=== PATIENT | female | born 1990 | race Caucasian/White ===

== ENCOUNTER 2018-07-13 15:55 | Emergency (ER) | payer MEDICAID ==
--- NOTE | 2018-07-13 16:04 | EDM.PDOC ---
ED HPI GENERAL MEDICAL PROBLEM - General Chief Complaint: Neurological Problem Stated Complaint: UNRESPONSIVE Time Seen by Provider: 07/13/18 15:55 Source of Information: Reports: Family History Limitations: Reports: Altered Mental Status, Physical Impairment - History of Present Illness INITIAL COMMENTS - FREE TEXT/NARRATIVE: 28-year-old female with a long-standing history of seizures since she was a child after a reaction to an immunization according to her guardian, presents with her third seizure of the day. She's having prolonged postictal periods as well, so the guardian thought she should be checked. She is coming down with "a cold", but has not missed any medications. Her neurologist is in [place]. Her last neuroleptic blood levels were all upper level of therapeutic and no changes were done. No recent fevers, nausea or vomiting or significant illness other than cold symptoms. On arrival to the emergency room she was unresponsive but started actively seizing on arrival. Onset: Unknown/Unsure Severity: Moderate Associated Symptoms: Denies: Cough, Fever/Chills, Nausea/Vomiting, Shortness of Breath - Related Data Allergies Allergy/AdvReac Type Severity Reaction Status Date / Time No Known Allergies Allergy Verified 07/13/18 16:47 Home Meds: Home Meds Citalopram Hydrobromide [Celexa] 40 mg PO DAILY 07/13/18 [History] Folic Acid 1 mg PO BID 07/13/18 [History] Zonisamide [Zonegran] 300 mg PO BID 07/13/18 [History] clonazePAM [Clonazepam] 2 mg PO BID 07/13/18 [History] levETIRAcetam [Keppra] 1,500 mg PO BID 07/13/18 [History] ED ROS GENERAL - Review of Systems Review Of Systems: Unable To Obtain - Physical Exam Exam: See Below Exam Limited By: Physical Impairment General Appearance: Lethargic Eye Exam: Bilateral Eye: PERRL Neck: Supple Respiratory/Chest: No Respiratory Distress, Lungs Clear Cardiovascular: Regular Rate, Rhythm GI/Abdominal: Soft, Non-Tender Neuro Exam (Abbreviated): Inattentive, Other (During the postdictal states she did respond to pain and localized pain) Extremities: No: Pedal Edema Skin Exam: Warm, Dry, Pallor Course - Vital Signs Last Recorded V/S: Last Vital Signs Temp 95.9 F 07/13/18 16:07 Pulse 94 10/01/18 18:23 Resp 12 07/13/18 18:23 BP 120/82 07/13/18 18:23 Pulse Ox 98 07/13/18 18:23 - Orders/Labs/Meds Labs: Laboratory Tests 07/13/18 07/13/18 Range/Units 16:16 16:16 WBC 9.8 (4.5-11.0) K/uL RBC 4.44 (3.30-5.50) M/uL Hgb 14.4 (12.0-15.0) g/dL Hct 42.6 (36.0-48.0) % MCV 96 (80-98) fL MCH 32 H (27-31) pg MCHC 34 (32-36) % Plt Count 132 L (150-400) K/uL Neut % (Auto) 92 H (36-66) % Lymph % (Auto) 6 L (24-44) % [place] % (Auto) 3 (2-6) % Eos % (Auto) 0 L (2-4) % Baso % (Auto) 0 (0-1) % Sodium 141 (140-148) mmol/L Potassium 3.6 (3.6-5.2) mmol/L Chloride 106 (100-108) mmol/L Carbon Dioxide 20 L (21-32) mmol/L Anion Gap 18.6 H (5.0-14.0) mmol/L BUN 11 (7-18) mg/dL Creatinine 0.9 (0.6-1.0) mg/dL Est Cr Clr Drug Dosing 89.69 mL/min Estimated GFR (MDRD) > 60 (>60) Glucose 134 H (74-106) mg/dL Calcium 8.3 L (8.5-10.1) mg/dL Magnesium 1.9 (1.8-2.4) mg/dL Total Bilirubin 0.5 (0.2-1.0) mg/dL AST 13 L (15-37) U/L ALT 23 (12-78) U/L Alkaline Phosphatase 58 (46-116) U/L Total Protein 7.2 (6.4-8.2) g/dL Albumin 4.1 (3.4-5.0) g/dL Globulin 3.1 (2.3-3.5) g/dL Albumin/Globulin Ratio 1.3 (1.2-2.2) Meds: Medications Discontinued Medications Generic Name Dose Route Start Last Admin Trade Name Kari PRN Reason Stop Dose Admin Levetiracetam 500 mg/ Sodium 105 mls @ 400 mls/hr 07/13/18 18:02 07/13/18 18: 08 Chloride IV 07/13/18 18:16 400 mls/hr ONETIME ONE Administration Lorazepam 0.5 mg 07/13/18 16:15 07/13/18 16:47 Ativan IVPUSH 07/13/18 16:16 0.5 mg ONETIME ONE Administration Lorazepam 0.5 mg 07/13/18 17:24 07/13/18 17:26 Ativan IVPUSH 07/13/18 17:25 0.5 mg ONETIME ONE Administration Lorazepam 0.5 mg 07/13/18 18:04 07/13/18 18:06 Ativan IVPUSH 07/13/18 18:05 0.5 mg ONETIME ONE Administration - Re-Assessments/Exams Free Text/Narrative Re-Assessment/Exam: 07/13/18 18:17 Conversations were had with her neurologist in [place], hospitalist service in [place], and the hospitalist service and neurologist Dr. Kauffman at [facility] in [place]. CBC and CMP returned within normal limits. Recommendation was to give her 500 mg bolus of Keppra IV, and transferred to [facility] for monitoring. It was also recommended she increase her daily Keppra to 2000 mg twice daily. Patient did have an additional seizure while in the emergency room requiring a second dose of 0.5 mg of Ativan. Discussed the plan with her guardian and she agreed with the transfer and treatment plan, she would like her full code at this time. Departure - Departure Time of Disposition: 19:08 Disposition: DC/Tfer to Other Condition: Fair Clinical Impression: Generalized convulsive epilepsy - Discharge Information Referrals: PCP,None [Primary Care Provider] - Forms: ED Department Discharge Care Plan Goals: Patient is to be transferred to [facility] for neurology monitoring and care, possibly further evaluation for persistent and recurring seizures.
[2018-07-13] MEDS ORDERED: LORazepam 2 MG/ML SDV IVPUSH ONE ×3 (16:15→18:04)
[2018-07-13] MEDS ORDERED: levETIRAcetam 500 MG in Sodium Chloride 0.9% 100 ML IV ONE (18:02)
== END 2018-07-13 19:08 | disposition other institution (70) ==
LOC: JP.ED 15:55
DX: G40.409 Other generalized epilepsy and epileptic syndromes, not intractable, without status epilepticus (principal); Z79.899 Other long term (current) drug therapy
CPT/HCPCS: 36415; 80053; 83735; 85025; 96365; 96375; 96376; 99285; J1953; J2060; J7030

== ENCOUNTER 2021-10-12 11:19 | Emergency (ER) | payer MEDICARE, MEDICAID ==
--- NOTE | 2021-10-12 12:19 | EDM.PDOC ---
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 Is no longer bleeding upon arrival. Onset: Today, Sudden Onset Date: 10/12/21 Duration: Minutes: Location: Reports: Face (tongue) Quality: Reports: Other (none) Severity: Mild Improves with: Reports: Other (time) Worsens with: Reports: Other (unsure, trauma from brushing) Context: Reports: Trauma Associated Symptoms: Reports: No Other Symptoms Treatments ROLL RECLAIMER: Reports: Other (see below) (none) - Related Data Allergies Allergy/AdvReac Type Severity Reaction Status Date / Time No Known Allergies Allergy Verified 07/13/18 16:47 Home Meds: Home Meds Citalopram Hydrobromide [Celexa] 40 mg PO DAILY 07/13/18 [History] Folic Acid 1 mg PO BID 07/13/18 [History] Zonisamide [Zonegran] 300 mg PO BID 07/13/18 [History] clonazePAM [Clonazepam] 2 mg PO BID 07/13/18 [History] levETIRAcetam [Keppra] 1,500 mg PO BID 07/13/18 [History] Past Medical History Neurological History: Reports: Seizure Other Neuro History: VNS Implant Other Psychiatric History: Developmental delay from childhood vactination. - Past Surgical History Other Female Surgeries/Procedures: uterine ablation. Other Musculoskeletal Surgeries/Procedures:: toe surgery Social & Family History - Tobacco Use Tobacco Use Status *Q: Never Tobacco User - Caffeine Use Caffeine Use: Reports: Coffee - Recreational Drug Use Recreational Drug Use: No ED ROS ENT - Review of Systems Review Of Systems: See Below Constitutional: Reports: No Symptoms HEENT: Reports: Other (tongue bleeding) Respiratory: Reports: No Symptoms Cardiovascular: Reports: No Symptoms Skin: Reports: No Symptoms Neurological: Reports: No Symptoms ED EXAM, ENT - Physical Exam Exam: See Below Exam Limited By: No Limitations General Appearance: Alert, WD/WN, No Apparent Distress Eye Exam: Bilateral Eye: Normal Inspection Nose: Normal Inspection, No Blood Mouth/Throat: Normal Lips, Normal Oropharynx Head: Atraumatic, Normocephalic Extremities: Normal Inspection Neurological: Alert, Oriented, CN II-XII Intact, Normal Cognition, No Motor/Sensory Deficits Psychiatric: Normal Affect, Normal Mood Skin: Warm, Dry, Intact, Normal Color, No Rash Course - Vital Signs Last Recorded V/S: Last Vital Signs Temp 36.6 C 10/12/21 11:36 Pulse 75 10/12/21 11:36 Resp 16 10/12/21 11:36 BP 110/80 10/12/21 11:36 Pulse Ox 98 10/12/21 11:36 Departure - Departure Time of Disposition: 12:30 Disposition: Home, Self-Care 01 Condition: Good Clinical Impression: Hemorrhage of tongue - Discharge Information *PRESCRIPTION DRUG MONITORING PROGRAM REVIEWED*: Not Applicable *COPY OF PRESCRIPTION DRUG MONITORING REPORT IN PATIENT WILI: Not Applicable Referrals: PCP,None [Primary Care Provider] - Additional Instructions: Acetaminophen as needed for pain relief. Recheck as needed. Sepsis Event Note (ED) - Evaluation Sepsis Screening Result: No Definite Risk - Focused Exam Vital Signs: Vital Signs Temp Pulse Resp BP Pulse Ox 10/12/21 11:36 36.6 C 75 16 110/80 98
== END 2021-10-12 13:04 | disposition home or self-care (01) ==
LOC: JP.ED 11:19
DX: K14.8 Other diseases of tongue (principal); Z79.899 Other long term (current) drug therapy
CPT/HCPCS: 99283

== ENCOUNTER 2023-06-15 21:54 | Emergency (ER) | payer MEDICARE, MEDICAID | END 2023-06-16 01:19 | disposition home or self-care (01) | LOC: JP.ED 21:54 | DX: S90.02XA Contusion of left ankle, initial encounter (principal); Z79.899 Other long term (current) drug therapy; W01.0XXA Fall on same level from slipping, tripping and stumbling without subsequent striking against object, initial encounter; Y92.199 Unspecified place in other specified residential institution as the place of occurrence of the external cause | CPT/HCPCS: 73610-26-LT; 73610-LT; 73630-26-LT; 73630-LT; 99283 ==